=== PATIENT | female | born 1970 ===

== ENCOUNTER 2022-05-03 14:11 | Outpatient (CLI) | payer OTHER ==
--- NOTE | 2022-05-04 10:49 | Mammography Report ---
BILATERAL DIGITAL SCREENING MAMMOGRAM 3D/2D: 05/03/2022 CLINICAL: Routine screening. Comparison is made to exams dated: 04/09/2012 mammogram and 11/28/2007 mammogram - [facility]. There are scattered areas of fibroglandular density in both breasts (category b / 25%-50% glandular t issue). There is a focal asymmetry in the right breast at 11 o'clock middle depth. No other significant masses, calcifications, or other findings are seen in either breast. IMPRESSION: INCOMPLETE: NEEDS ADDITIONAL IMAGING EVALUATION The focal asymmetry in the right breast is indeterminate. Additional views with possible ultrasound are recommended. Based on the Tyrer Cuzick model (a risk assessment model) the patients lifetime risk is 14.7% and he r 10 year risk is 4.3%. According to the ACR, ACS, and NCCN guidelines, an annual breast MRI exam issac ng with mammogram is recommended if the patients lifetime risk is 20% or greater. This exam was interpreted at Station ID: [id number]. NOTE: For mammograms, a report in lay terms will be sent to the patient. Approximately 15% of breast malignancies will not be visualized mammographically. In the management of a palpable breast mass, a negative mammogram must not discourage biopsy of a clinically suspicious lesion. Electronically Signed By: Jackie Sal M.D. lk/:05/03/2022 17:47:23 ACR BI-RADS Category 0: Incomplete 3340F PARENCHYMAL PATTERN: (A) - The breast(s) demonstrate(s) scattered fibroglandular densities. BI-RADS CATEGORY: (0) - 0 Mammo and [place] [id number] Immediate follow-up LATERALITY: (B)
== END 2022-05-03 14:12 | disposition home or self-care (01) ==
LOC: DI 14:11
PROVIDERS: ATTEND Student in an Organized Health Care Education/Training Program
DX: Z12.31 Encounter for screening mammogram for malignant neoplasm of breast (principal); R92.2 Inconclusive mammogram

== ENCOUNTER 2022-05-31 07:40 | Outpatient (CLI) | payer OTHER ==
--- NOTE | 2022-06-01 13:10 | Mammography Report ---
UNILATERAL RIGHT DIGITAL DIAGNOSTIC MAMMOGRAM 3D/2D WITH SPOT COMPRESSION: 05/31/2022 CLINICAL: Patient returns today to evaluate a focal asymmetry in the right breast. Comparison is made to exams dated: 04/09/2012 mammogram and 11/28/2007 mammogram - [facility]. There are scattered areas of fibroglandular density in the right breast (category b / 25%-50% glandul ar tissue). The focal asymmetry in the right breast at 11 o'clock middle depth is no longer seen and is probably overlapping fibroglandular tissue. No other significant masses or calcifications are seen in the breast. IMPRESSION: INCOMPLETE: NEEDS ADDITIONAL IMAGING EVALUATION Resolution of screening mammography abnormality with additional views. Ultrasound evaluation to confi rm resolution is recommended and was performed immediately following this exam. Based on the Tyrer Cuzick model (a risk assessment model) the patients lifetime risk is 11.5% and he r 10 year risk is 3.3%. According to the ACR, ACS, and NCCN guidelines, an annual breast MRI exam issac ng with mammogram is recommended if the patients lifetime risk is 20% or greater. This exam was interpreted at Station ID: [id number]. NOTE: For mammograms, a report in lay terms will be sent to the patient. Approximately 15% of breast malignancies will not be visualized mammographically. In the management of a palpable breast mass, a negative mammogram must not discourage biopsy of a clinically suspicious lesion. Electronically Signed By: Rochelle krishnan/:05/31/2022 12:00:35 ACR BI-RADS Category 0: Incomplete 3340F PARENCHYMAL PATTERN: (A) - The breast(s) demonstrate(s) scattered fibroglandular densities. BI-RADS CATEGORY: (0) - 0 Ultrasound [id number] Immediate follow-up LATERALITY: (B)
--- NOTE | 2022-06-01 13:10 | Ultrasound Report ---
LIMITED ULTRASOUND OF RIGHT BREAST: 05/31/2022 CLINICAL: Patient returns today to evaluate a focal asymmetry in the right breast. Comparison is made to exams dated: 05/31/2022 mammogram, 05/03/2022 mammogram - [facility] nt, 04/09/2012 mammogram, and 11/28/2007 mammogram - [facility]. Ultrasound of the right breast 12 o'clock region was performed. Butler scale images of the real-time e xamination were reviewed. No significant abnormalities were seen sonographically in the right breast. Specifically, no finding to correspond to the patient's resolved screening mammographic abnormality. IMPRESSION: NEGATIVE There is no abnormality seen in the right breast to correspond with the resolved screening mammograph y finding at 12 o'clock in the middle depth. Return to annual mammogram screening schedule is recommended. Findings and recommendations were conveyed to the patient at time of exam. This exam was interpreted at Station ID: [id number]. Electronically Signed By: Rochelle krishnan/:05/31/2022 12:02:20 Ultrasound BI-RADS: 1 Negative BI-RADS CATEGORY: (1) - 1 Mammogram [id number] return to screening LATERALITY: (B)
== END 2022-05-31 07:41 | disposition home or self-care (01) ==
LOC: DI 07:40
PROVIDERS: ATTEND Student in an Organized Health Care Education/Training Program
DX: R92.2 Inconclusive mammogram (principal)

== ENCOUNTER 2022-11-09 16:32 | Outpatient (CLI) | payer OTHER ==
--- NOTE | 2022-11-10 03:16 | Ultrasound Report ---
PROCEDURE: Pelvic Limited or F/U INDICATIONS: GROIN MASS TECHNIQUE: Real-time transabdominal scanning was performed of the right inguinal region, with image documentatio n. COMPARISON: None. FINDINGS: Ultrasound evaluation in the area of clinical concern demonstrates multiple enlarged lymph nodes in t he right inguinal region with the largest measuring up to 1.3 cm in short axis. These demonstrate pre served fatty yeny. IMPRESSION: 1. Multiple enlarged right inguinal lymph nodes with preserved fatty yeny demonstrated in the area of palpable abnormality. The findings are likely reactive and clinical follow-up is recommended to demo nstrate resolution. Reviewed by: Anthony White MD on 11/10/2022 3:15 AM PDT Approved by: Anthony White MD on 11/10/2022 3:15 AM PDT Station ID: [id number]
== END 2022-11-09 16:33 | disposition home or self-care (01) ==
LOC: DI 16:32
PROVIDERS: ATTEND Student in an Organized Health Care Education/Training Program
DX: R59.0 Localized enlarged lymph nodes (principal)

== ENCOUNTER 2023-11-15 14:22 | Outpatient (CLI) | payer OTHER ==
--- NOTE | 2023-11-15 18:41 | XRAY Report ---
PROCEDURE: Hip w/Pelvis 2-3V RT INDICATIONS: RIGHT HIP PAIN TECHNIQUE: AP view the pelvis and lateral view of the right hip. COMPARISON: None. FINDINGS: Bones: No acute fractures or dislocations. No suspicious bony lesions. Minimal lateral acetabular spurring. Mild degenerative changes of the pubic symphysis. Soft tissues: No suspicious soft tissue calcifications. IMPRESSION: Minimal bilateral hip osteoarthrosis. Reviewed by: Malcolm Cain MD on 11/15/2023 6:39 PM PDT Approved by: Malcolm Cain MD on 11/15/2023 6:39 PM PDT Station ID: [id number]
== END 2023-11-15 14:23 | disposition home or self-care (01) ==
LOC: DI 14:22
PROVIDERS: ATTEND Student in an Organized Health Care Education/Training Program
DX: M16.0 Bilateral primary osteoarthritis of hip (principal)